=== PATIENT | female | born 1960 | race Caucasian/White ===

== ENCOUNTER 2016-05-06 00:54 | Emergency (ER) | payer BC ==
[~2016-05-06] VITALS: Ht 167.6 cm; Wt 68.2 kg
[2016-05-06] MEDS ORDERED: PRINIVIL20 MG PO (01:02)
[2016-05-06] MEDS ORDERED: PREDNISONE20 MG PO (02:38)
[2016-05-06 03:12] VITALS: BP 196/118; PULSE 80
== END 2016-05-06 03:14 | disposition home or self-care (01) ==
LOC: COL.ER 00:54
DX: T78.3XXA Angioneurotic edema, initial encounter (principal)
CPT/HCPCS: J1200; J2930; J7030

== ENCOUNTER → 2018-11-12 | Outpatient (CLI) | payer BC ==
[~2018-11-12] MED LIST: PREDNISONE20 MG PO; PRINIVIL20 MG PO
== END ==
LOC: MC.RAD 08:43
DX: Z12.31 Encounter for screening mammogram for malignant neoplasm of breast (principal)

== ENCOUNTER → 2019-11-18 | Outpatient (CLI) | payer BC | LOC: MC.RAD 07:15 | DX: Z12.31 Encounter for screening mammogram for malignant neoplasm of breast (principal) ==

== ENCOUNTER 2020-09-22 21:41 | Emergency (ER) | payer BC ==
[~2020-09-22] VITALS: Ht 157.5 cm; Wt 68.2 kg
[2020-09-22] MEDS ORDERED: LIDODERM 5% PATC1 EA TP (22:53)
[2020-09-22] MEDS ORDERED: ROBAXIN 50500 MG/TAB PO (22:53)
[2020-09-22 23:45] VITALS: BP 145/87; PULSE 85; TEMP 98
== END 2020-09-22 23:45 | disposition home or self-care (01) ==
LOC: COL.ER 21:41
DX: S39.012A Strain of muscle, fascia and tendon of lower back, initial encounter (principal); X58.XXXA Exposure to other specified factors, initial encounter; Y93.53 Activity, golf
CPT/HCPCS: J1885

== ENCOUNTER → 2021-06-18 | Outpatient (CLI) | payer BC ==
[~2021-06-18] MED LIST changes: +LIDODERM 5% PATC1 EA TP; +ROBAXIN 50500 MG/TAB PO
== END ==
LOC: MC.RAD 13:15
DX: Z12.31 Encounter for screening mammogram for malignant neoplasm of breast (principal)

== ENCOUNTER → 2022-11-25 | Outpatient (CLI) | payer BC | LOC: CANSCHCLI → MC.RAD 13:51 → COL.RAD 14:00 → MC.RAD 14:00 | DX: Z12.31 Encounter for screening mammogram for malignant neoplasm of breast (principal) ==